=== PATIENT | male | born 1955 | race Caucasian/White ===

== ENCOUNTER 2018-07-04 11:03 | Inpatient (IN) | payer BC, OTHER ==
[~2018-07-04] VITALS: Ht 180.3 cm; Wt 91.2 kg
--- NOTE | ~2018-07-04 | H ---
[facility] [place] [address] HISTORY AND PHYSICAL Name: JORDAN BIRD Room #: 170-8 ADM IN M.R.#: [id number] Admission: 07/04/18 Attend Phys: Thomas Lai MD Discharge: Date of : 57 Report #: [id number] THIS REPORT FOR: //name// CC: John Lai DATE OF SERVICE: 07/04/2018 CHIEF COMPLAINT: Right thigh pain. HISTORY OF PRESENT ILLNESS: The patient is a 62-year-old gentleman who is 2 weeks out from a right total hip arthroplasty. He had been doing well for the first week, but over the past week or so, he has had progressive thigh pain. This morning, he was weightbearing on his right thigh and felt a pop in his leg and his pain significantly worsened. He called me and I told him to come to the Emergency Room and ordered to get a CT scan. CT scans revealed a periprosthetic nondisplaced fracture. We are admitting him for definitive treatment. PAST MEDICAL HISTORY: Significant for bilateral hip arthroplasties, hypertension. PAST SURGICAL HISTORY: As above. MEDICATIONS: Include bisoprolol, gabapentin, metformin, clonidine, cyanocobalamin, vitamin E, omeprazole. ALLERGIES: PENICILLIN. SOCIAL HISTORY: Does smoke occasionally, occasional alcohol use, no recreational drug use. REVIEW OF SYSTEMS: Negative other than right thigh pain. PHYSICAL EXAMINATION: GENERAL: A well-developed, well-nourished male in no acute distress. He is alert and oriented x 3, pleasant, cooperative with exam. HEART: Examination of the heart shows him to have regular rate and rhythm. CHEST: Clear to auscultation. ABDOMEN: Soft, nontender, nondistended. EXTREMITIES: Examination of the right lower extremity shows him to have positive Stinchfield exam. He has pain with range of motion of his right hip. His incision is healing well without signs of infection. NEUROLOGIC: He is neurologically intact. LABORATORY DATA: Reviewed show him to have a white count of 7.3, hemoglobin of 14.9. Chemistry shows sodium of 133, potassium of 4.6. [facility] [address] [place] [address] HISTORY AND PHYSICAL Name: JORDAN BIRD Room #: 170-8 ADM IN ..#: [id number] Admission: 07/04/18 Attend Phys: Thomas Lai MD Discharge: Date of : 57 Report #: [id number] examination of the right hip shows him to have a nondisplaced longitudinal fracture of the proximal femur around his stem. ASSESSMENT: Right periprosthetic femur fracture. PLAN: We are going to admit him to the hospital and planned to do a revision of his stem with cerclage, cabling of his femur fracture. We are planning to do this tomorrow morning at 10:00 a.m. We discussed this with him, he is understanding and wished to proceed. By: [id number] Thomas Lai MD /leoncio
--- NOTE | ~2018-07-04 | O ---
[facility] [place] [address] OPERATIVE REPORT Name: JORDAN BIRD Room #: 431-P [facility] IN M.R.#: [id number] Admission: 07/04/18 Attend Phys: Thomas Lai MD Discharge: Date of : 57 Report #: [id number] THIS REPORT FOR: //name// CC: John Lai DATE OF SERVICE: 07/05/2018 PREOPERATIVE DIAGNOSIS: Right proximal femur periprosthetic hip fracture. POSTOPERATIVE DIAGNOSIS: Right proximal femur periprosthetic hip fracture. PROCEDURES: 1. ORIF right proximal periprosthetic femur fracture. 2. Revision right hip arthroplasty stem and head only. SURGEON: Thomas Lai MD. PRODUCTION CORRUGATOR: Shaniqua Rosas PA-C. ANESTHESIA: LMA. IMPLANTS: Accord cable x 3 as well as a size 14 high offset Synergy press-fit stem and a 36 -3 Oxinium head. ESTIMATED BLOOD LOSS: 100 mL. COMPLICATIONS: None. SPECIMENS: None. CONDITION UPON LEAVING THE OPERATING ROOM: Stable. INDICATIONS FOR PROCEDURE: The patient is a 62-year-old gentleman who is little over 2 weeks out from a right total hip arthroplasty. He initially has done well; however, over the past week or so has developed increasing thigh pain. Yesterday, he stepped down off his leg and felt a pop and had increasing pain and a CT scan shown to have a nondisplaced fracture of his proximal femur around his stem and after discussion with him, he elected for ORIF of the proximal femur and revision of the stem. DESCRIPTION OF PROCEDURE: Risks, benefits, alternatives, complications were discussed in detail with the patient including but not limited to risk of anesthesia, risk of damage to nerves, arteries, blood vessels, risk for infection, bleeding, risk for continued hip pain, leg length discrepancy and need for reoperation. Informed consent was obtained from the patient and right [address] [address] OPERATIVE REPORT Name: JORDAN BIRD Room #: 431-P [facility] IN M.R.#: [id number] Admission: 07/04/18 Attend Phys: Thomas Lai MD Discharge: Date of : 57 Report #: [id number] hip was appropriately marked in the preoperative holding area. IV clindamycin was given for preoperative antibiotic. He was brought to the operating room and placed in the supine position on the operating room table. LMA anesthesia was induced without complication, then placed in the left lateral decubitus position with right hip uppermost. Right hip and lower extremity were prepped and draped in normal sterile fashion. Timeout was performed properly identifying the patient and procedure as well as the instrumentation and implants. All in the operating room were in agreement. The previous incision was used and this was opened with a 10 blade. This was extended distally with a 10 blade through the skin. The tissue was dissected down to the fascia with Bovie cautery. The previous fascial incision was then opened with 10 blade and extended distally. Charnley retractor was placed. There was a hematoma that was evacuated and the hip was left reduced and 3 cables were placed around the proximal femur using the cable passer. These were then tensioned and tightened. X-ray imaging was brought in to verify adequate placement of the cables, one above the lesser trochanter and 2 below the lesser trochanter. After confirmation of this, the hip was then dislocated and the stem was removed. This was then reamed and broached up to a size 14, at which point, the size 14 broach was stable, was trialed with a high offset neck and a 36+0 head. Hip was reduced, taken through range of motion, found to be stable, found to have equal leg lengths. The broach was removed and final size 14 high offset Synergy press fit stem was placed. This was trialled with a 36+0 head and found to be slightly long. The stem did not seat as far distally as the broach and so we trialled with a 36 -3 head. Hip was then reduced, taken through range of motion, found to be stable, found to have equal leg lengths. Hip was dislocated one last time and a final size 36 -3 Oxinium head was placed. Hip was reduced, taken through range of motion, found to be stable, found to have equal leg lengths. Wound was thoroughly irrigated with normal saline. A gram of vancomycin was placed deep in the joint. Periarticular injection consisting of morphine, ropivacaine, epinephrine and Toradol was placed around the hip joint. A deep drain was placed. The fascia was closed with 0 Vicryl, skin was closed with 2-0 Vicryl and skin raquel and the JODIE dressing was applied. The patient tolerated this procedure well and went to recovery room under care of anesthesia postoperatively. By: [id number] Thomas Lai MD /nt
[2018-07-04 11:07] VITALS: BP 171/95
[2018-07-04] MEDS ORDERED: BISOPROLOL FUMAR5 MG PO (12:08)
[2018-07-04] MEDS ORDERED: METFORMIN HCL500 MG PO (12:08)
[2018-07-04] MEDS ORDERED: NEURONTIN300 MG PO (12:08)
[2018-07-04] MEDS ORDERED: VITAMIN B-12500 MCG PO (12:09)
[2018-07-04] MEDS ORDERED: CATAPRES0.2 MG PO (12:09)
[2018-07-04] MEDS ORDERED: VITAMIN E400 UNIT PO (12:09)
[2018-07-04] MEDS ORDERED: PRILOSEC 10MG C10 MG PO (12:10)
[2018-07-04 12:53] LABS: BASOPHILS 0.7 % (0.0-2.0); EOSINOPHILS 2.6 % (0.0-3.0); HEMOGLOBIN 14.9 gm/dL (14.0-18.0); LYMPHOCYTES 22.2 % (24.0-44.0); MCH 31.4 pg (26.0-34.0); MCHC 33.1 g/dL (28.0-37.0); MCV 94.9 fL (80.0-100.0); MONOCYTES 6.6 % (1.0-8.0); PLATELET COUNT 277 thou/uL (150-400); POLYS 67.9 % (36.0-66.0); RBC 4.75 mil/uL (4.50-6.00); RDW 13.1 % (10.5-14.5); WBC 7.3 thou/uL (4.0-11.0)
[2018-07-04 13:00] LABS: CALCIUM 9.5 mg/dL (8.5-10.1); CREATININE 0.8 mg/dL (0.7-1.3); POTASSIUM 4.6 mmol/L (3.5-5.1)
[2018-07-04 15:56] VITALS: BP 166/93
[2018-07-04 16:44] VITALS: BP 147/80; BP 154/76
--- NOTE | 2018-07-04 17:33 | NUR ---
ASSUMED CARE OF PT AT 16:40. ARRIVED FROM ED IN STABLE CONDITION VIA CART. ORIENTED TO ROOM AND CALL LIGHT. ADMISSION ASSESSMENT COMPLETED AND CHARTED. A&O,X4. C/O RIGHT HIP/LEG PAIN DUE TO FEMUR FX, PAIN MEDS GIVEN ORDERED. MAINTAINING BEDREST AND FALL PRECAUTIONS. SKIN INTACT, DISCOLORATION TOES NOTED. WILL CONTINUE TO MONITOR.
[2018-07-04 18:12] VITALS: BP 183/91
[2018-07-04 19:17] VITALS: BP 148/86
[2018-07-05 04:13] VITALS: BP 129/84
--- NOTE | 2018-07-05 06:22 | NUR ---
Pt a/o x 4. RA. C/o right hip pain, pain meds given per order. NPO after midnight for today's surgery (07/05/18). VSS. Pt resting in bed comfortably in bed at this time. No apparent distress noted. All fall precautions maintained. Call light within reach. Will continue to monitor.
[2018-07-05 07:14] VITALS: BP 137/82
--- NOTE | 2018-07-05 08:59 | NUR ---
ASSUMED CARE OF PT AT 0700. ASSESSMENT COMPLETED AND CHARTED. A&O,X4. C/O RIGHT LEG/HIP PAIN WITH MOVEMENT 10/10, PAIN MEDS GIVEN ORDERED. POC FOR SURGERY TODAY. PT HAS BEEN NPO SINCE MIDNIGHT, AM MEDS GIVEN WIH SIPS OF WATER, SEE EMAR. SCD'S ON. PT LEFT UNIT AT 0855 FOR PREOP. WILL WAIT FOR RETURN.
[2018-07-05 09:04] VITALS: BP 140/81
--- NOTE | 2018-07-05 14:03 | NUR ---
ASSESSMENT- PT LIVES AT HOME WITH HIS MOTHER. PT HAS BEEN USING A ROLLER WALKER TO GET AROUND AND DOES HIS OWN ADLS. PT HAS A CANE AT HOME TOO. HIS MOM COOKS, THEY EAT OUT OR GET TAKE OUT FOODS. THEY HAVE A CLEANING LADY THAT COMES EVERY 2 WEEKS. MOM DOES THE LAUNDRY. PT HAD BEEN GOING TO [facility] FOR OUTPT PHYSICAL THERAPY. FOLLOWING TO ASSIST WITH DC PLANNING.
[2018-07-05 15:00] VITALS: BP 117/71
[2018-07-05 16:03] VITALS: BP 140/101
[2018-07-05 19:56] VITALS: BP 137/83
--- NOTE | 2018-07-05 20:13 | NUR ---
END OF SHIFT. NO CHANGE IN PT CONDITION NOTED. REPORTING 5/10 RIGHT HIP PAIN, PAIN MEDS GIVEN ORDERED. NO NAUSEA. JODIE DRESSING IN PLACE, HEMOVAC DRAIN, MINIMAL OUTPUT NOTED. 2 L NC AND APNEA MONITOR AT BEDSIDE. NO SOA OR TROUBLE BREATHING NOTED. DENIES CONCERNS AT THIS TIME.
--- NOTE | 2018-07-06 02:58 | NUR ---
PT C/O PAIN ON HIS R HIP,MED ADMINSITERED ORDERED.PT CONT ON IVF AND IV ABX.URINAL AT BEDSIDE WITH GOOD OUTPUT.SLEEP APNEA MONITOR IN PLACE.PT BREATHING NORMAL AND UNLABORED.PT ABLE TO REPOSITION SELF WHILE IN BED.DRSG ON HIS R HIP C/D/I WITH HEMOVAC,MIN DRAINAGE NOTED.CALL LIGHT WITHIN REACH.
[2018-07-06 04:03] VITALS: BP 140/90
[2018-07-06 05:45] LABS: HEMATOCRIT 39.6 % (42.0-52.0); HEMOGLOBIN 13.1 gm/dL (14.0-18.0); MCH 31.5 pg (26.0-34.0); MCV 95.7 fL (80.0-100.0); RBC 4.14 mil/uL (4.50-6.00); WBC 9.7 thou/uL (4.0-11.0)
[2018-07-06 07:16] VITALS: BP 144/64
--- NOTE | 2018-07-06 10:49 | NUR ---
PT A&OX4, AMBULATED WITH PT. IV INTACT IN R AC. R HIP JODIE DRSG D/I WITH HEMOVAC IN PLACE WITH APPROX 10ML SANG. FLUID NOTED. TOLERATING PO PAIN.
[2018-07-06] MEDS ORDERED: TRI-BUFFERED A325 M1 PO (14:43)
[2018-07-06 16:06] VITALS: BP 131/68
[2018-07-06 19:05] VITALS: BP 150/87
[2018-07-06 20:45] VITALS: BP 150/87
--- NOTE | 2018-07-06 21:03 | NUR ---
PATIENT TRANSFERRED FROM [facility], REPORT FROM PONCHO/MEMO. PATIENT UP WITH ASSIST X 1 WITH WALKER. PATIENT DIDN'T DISCHARGE TODAY DUE TO PAIN LEVEL, NEW ORDER FOR HYDROCODONE 10/325 MG STARTED AT 1999. PATIENT VOIDS PER URINAL, CLEAR AND YELLOW. PATIENT GIVEN HYDROCODONE 10/325 MG 2 TABS. WILL CONTINUE TO MONITOR. PATIENT MAY DISCHARGE TOMORROW IF PAIN MANAGED.
--- NOTE | 2018-07-07 03:54 | NUR ---
Pt A/Ox4,pleasant mood. Up with AX1/RW. C/o pain to right hip 01/09 medicated per EMAR with relief reported 08/12. Ice pack provided to pt too.JODIE wood in place C/D/I,dressing over hemovac drain site with some bloody drainage. SCD's applied. VSS. Pt @ HS refused to take Morphine stating he doesn't like the way it makes him feel. Also stated he takes Clonidine as needed and only Gabapentin 600mg BID not 900mg,will pass on details to day nurse to follow up with . Fall precautions implemented. Voiding clear yellow urine using a urinal,BS active. Resting quietly eyes closed will continue to monitor.
[2018-07-07 06:33] LABS: HEMATOCRIT 40.8 % (42.0-52.0); HEMOGLOBIN 13.6 gm/dL (14.0-18.0); MCH 31.8 pg (26.0-34.0); MCHC 33.2 g/dL (28.0-37.0); MCV 95.9 fL (80.0-100.0); RBC 4.26 mil/uL (4.50-6.00); RDW 13.2 % (10.5-14.5); WBC 6.4 thou/uL (4.0-11.0)
[2018-07-07 07:30] VITALS: BP 140/80
--- NOTE | 2018-07-07 11:11 | NUR ---
PATIENT CARE WAS ASSUMED AT 0715.PATIENT IS ALERT AND ORIENTED X4.PATIENT HAS PAIN 5/10 ON PAIN SCALE WILL GIVE PAIN MEDS.PT HAS DRESSING INTACT.IV IS INTACT AND SALINE LOCKED.PT IS ABLE TO AMBULATE WITH WALKER.CALL LIGHT, PHONE, AND PERSONAL BELONGINGS ARE WITHIN REACH.WILL CONTINUE TO MONITOR.
[2018-07-07 11:20] VITALS: BP 140/80
--- NOTE | 2018-07-07 11:48 | NUR ---
PATIENT WAS DISCHARGED TO GO HOME WITH SELF CARE.D/C PAPERWORK WAS GIVEN TO PATIENT.PT HAS NO QUESTIONS AT THIS TIME.IV WAS TAKEN OUT.PT WILL BE TAKEN TO TO CARE BY AGRICULTURAL EDUCATION PROFESSOR WITH FAMILY MEMBER.
== END 2018-07-07 12:00 | disposition home or self-care (01) | DRG 468 ==
LOC: ER 11:03 → 4E 14:03 → EROBS 14:03 → 4E 17:02 → SICU 07-06 17:58 → EROBS 07-06 18:41 → SICU 07-06 18:43
PROVIDERS: Nurse Practitioner Family; ADMIT Orthopaedic Surgery
DX: M97.01XA Periprosthetic fracture around internal prosthetic right hip joint, initial encounter (principal); I10 Essential (primary) hypertension; Z96.643 Presence of artificial hip joint, bilateral; Z79.899 Other long term (current) drug therapy; Z88.0 Allergy status to penicillin; Z79.82 Long term (current) use of aspirin
CPT/HCPCS: 10783; 15002; 50010; 50101; 50382; 50414; 51412; 53078; 54118; 56524; 56527; 56528; 56530; 57095; 57103; 62110; 62900; 70005

== ENCOUNTER 2019-06-10 05:46 | Day surgery (SDC) | payer BC, OTHER ==
[~2019-06-10] VITALS: Ht 180.3 cm; Wt 95.3 kg
--- NOTE | ~2019-06-10 | O ---
[facility] [place] [address] OPERATIVE REPORT Name: JORDAN BIRD Room #: 150-2 [facility]..#: [id number] Admission: 06/10/19 Attend Phys: Thomas Lai MD Discharge: Date of : 57 Report #: [id number] THIS REPORT FOR: //name// CC: John Lai DATE OF SERVICE: 06/10/2019 PREOPERATIVE DIAGNOSIS: Right hip painful hardware, status post total hip arthroplasty. POSTOPERATIVE DIAGNOSIS: Right hip painful hardware, status post total hip arthroplasty. PROCEDURE: Hardware removal, deep right hip; cerclage cable x 3. SURGEON: Thomas Lai MD. MARKET RESEARCH WORKER: Shaniqua Rosas PA-C. ANESTHESIA: General. ESTIMATED BLOOD LOSS: 25 mL. COMPLICATIONS: None. SPECIMENS: None. CONDITION UPON LEAVING THE OPERATING ROOM: Stable. INDICATIONS FOR PROCEDURE: The patient is a 63-year-old gentleman who is about a year out from a right total hip arthroplasty. He subsequently had a periprosthetic fracture that was revised with fixation using three cerclage cables and revision total hip. He has gone on to heal his periprosthetic fracture and has been overall doing well with his hip; however, having continued lateral pain in the hip and was felt that the cerclage cables were causing continued pain and bursitis. After discussion with him, he elected for hardware removal. DESCRIPTION OF PROCEDURE: Risks, benefits, alternatives, complications were discussed in detail with the patient including, but not limited to risk of anesthesia, risk of damage to nerves, arteries, blood vessels, risk for infection, bleeding, continued hip pain, need for reoperation. Informed consent was obtained from the patient. The right hip was appropriately marked in the preoperative holding area. IV Ancef was given for preoperative antibiotics. He was brought to the operating room and placed in supine position on operating [address] [address] OPERATIVE REPORT Name: JORDAN BIRD Room #: 150-2 [facility]#: [id number] Admission: 06/10/19 Attend Phys: Thomas Lai MD Discharge: Date of : 57 Report #: [id number] room table. LMA anesthesia was induced without complication. He was then placed in the left lateral decubitus position with the right hip uppermost. Right hip and lower extremity were prepped and draped in normal sterile fashion. Timeout was performed, properly identifying the patient and procedure as well as instrumentation. All in the operating room were in agreement. A standard posterior approach to the hip was made. Previous scar was used. This was incised with a 10-blade through the skin. Dissection was taken down to fascia with Bovie cautery and the fascia was cleaned off. Fresh 10-blade was used to make a fascial incision. This was taken proximally and distally with curved Griffith scissor. Charnley retractor was placed and a Bovie cautery was used to dissect out the cerclage cables on the lateral femur. A wire photo operator news was used to cut the wires and they were pulled out with a rongeur. Wound was thoroughly irrigated with normal saline. The deep musculature was closed with 0 Vicryl. Fascia was closed with 0 Vicryl, skin was closed with 2-0 Vicryl and skin raquel and an Aquacel dressing was applied. The patient tolerated this procedure well and went to recovery room under care of anesthesia postoperatively. By: [id number] Thomas Lai MD /leoncio
[~2019-06-10 05:46] MED LIST: BISOPROLOL FUMAR5 MG PO; CATAPRES0.2 MG PO; FUROSEMIDE 40 M40 MG PO; KLOR-CON 10 ER10 MEQ PO; LOSARTAN POTASS50 MG PO; METFORMIN HCL500 MG PO; NEURONTIN300 MG PO; NORCO 5-325 TA1 EAC1 PO; PRILOSEC10 MG PO; TRI-BUFFERED A325 M1 PO; VITAMIN B-12500 MCG PO; VITAMIN B-6250 MG PO; VITAMIN C500 M1 PO; VITAMIN E400 UNIT PO
[2019-06-10 07:30] VITALS: BP 153/81
[2019-06-10 07:42] LABS: CALCIUM 9.2 mg/dL (8.5-10.1); CREATININE 0.8 mg/dL (0.7-1.3); POTASSIUM 4.3 mmol/L (3.5-5.1)
[2019-06-10 07:48] LABS: ALBUMIN 3.4 g/dL (3.4-5.0); TOTAL BILIRUBIN 0.7 mg/dL (<0.1-1.0); TOTAL PROTEIN 7.5 g/dL (6.4-8.2)
[2019-06-10] MEDS ORDERED: NORCO 5-325 TA1 EAC1 PO (08:37)
[2019-06-10 08:53] VITALS: BP 153/81
--- NOTE | 2019-06-10 08:58 | EKG ---
[address] [address] ELECTROCARDIOGRAM REPORT Name: JORDAN BIRD Room #: 150-2 [facility]#: [id number] Admission: 06/10/19 Attend Phys: Thomas Lai MD Discharge: Date of : 57 Report #: [id number] THIS REPORT FOR: //name// [facility] Test Date: 2019-06-10 Test Time: 06:36:15 Pat Name: JORDAN BIRD Department: Room: [facility] 2 Gender: M Ged Teacher: STEVEN : 1955 Requested By: Thomas Lai Order Number: [id number] MD: Marco Scott Measurements Intervals [place] Rate: 68 P: -13 [place]: 211 QRS: -31 QRSD: 86 T: -10 QT: 420 QTc: 447 Interpretive Statements Sinus rhythm Left ventricular hypertrophy Borderline T abnormalities, inferior leads No previous ECG available for comparison Electronically Signed On 06-10-2019 8:58:22 GLASS HANDLER by Marco Scott [email or web address] <ELECTRONICALLY SIGNED> By: Marco Scott MD, [facility] 06/10/19 0858 0636 Marco Scott MD, FACC /EPI
== END 2019-06-10 09:45 | disposition home or self-care (01) ==
LOC: OR 05:46 → TBA 05:47 → OR 09:45
PROVIDERS: Orthopaedic Surgery
DX: T84.84XA Pain due to internal orthopedic prosthetic devices, implants and grafts, initial encounter (principal); M25.551 Pain in right hip; Z96.641 Presence of right artificial hip joint; I10 Essential (primary) hypertension; E11.9 Type 2 diabetes mellitus without complications; G62.9 Polyneuropathy, unspecified; K21.9 Gastro-esophageal reflux disease without esophagitis; Z98.41 Cataract extraction status, right eye; Z98.42 Cataract extraction status, left eye; Z87.891 Personal history of nicotine dependence; Z98.890 Other specified postprocedural states; Z79.899 Other long term (current) drug therapy; Z88.0 Allergy status to penicillin; Y83.8 Other surgical procedures as the cause of abnormal reaction of the patient, or of later complication, without mention of misadventure at the time of the procedure
CPT/HCPCS: 50010; 50101; 50382; 50414; 51412; 56528; 57103; 62110; 62900; 70005